=== PATIENT | female | born 1955 | race Caucasian/White ===

== ENCOUNTER 2018-07-27 07:20 | Emergency (ER) ==
--- OUTSIDE RECORDS SUMMARY | 2018-07-27 07:23 | XMS REPORT | Clinical Summary ---
Author Author [facility] Organization [facility] Address Unknown Phone Unavailable Care Team Providers Care Airfield Manager Name Role Phone Mario Ramirez MD PCP Allergies Comments Active Allergy Reactions Severity Noted Date Doesn't take due to GI ulcer. Gets stomach pains Ibuprofen Other (See 12/19/2017 Comments) Nitrofurantoin Hives 07/10/2018 Monohyd/M-Cryst Medications End Date Status Medication Sig Dispensed Refills Start Date Active allopurinol (ZYLOPRIM) allopurinol 0 300 MG tablet 300 mg tablet TAKE ONE (1) TABLET(S) BY MOUTH ONCE A DAY. Active amLODIPine (NORVASC) 5 mg amlodipine 5 0 tablet mg tablet Active thyroid, pork, (ARMOUR Rush 0 THYROID) 60 mg tablet Thyroid 60 mg tablet Active clonIDINE (CATAPRES) 0.1 clonidine HCl 0 MG tablet 0.1 mg tablet 01/28/2019 Active traMADol (ULTRAM) 50 mg Take 1 tablet 60 tablet 0 tablet (50 mg total) 8 by mouth every 4 (four) hours as needed for moderate pain. Active CHONDROITIN SULFATE A Take by 0 ORAL mouth. Active gluc norman/chondro norman A/vit Take by 0 C/Mn (GLUCOSAMINE 1500 mouth. COMPLEX ORAL) Active Lactobac no.41/Bifidobact Take by 0 no.7 (PROBIOTIC-10 ORAL) mouth. Active MELATONIN ORAL Take by 0 mouth. Active MAGNESIUM ORAL Take by 0 mouth. Active cholecalciferol, vitamin Take by 0 D3, (VITAMIN D3 ORAL) mouth. Active multivitamin with Take 1 tablet 0 minerals tablet by mouth daily. Active lwhxlezq-iyuwzutar-TH 3 drops as 0 (CORTISPORIN) needed. For 3.5-10,000-1 ear pain prn mg/mL-unit/mL-% otic solution Active METHOCARBAMOL ORAL Take by 0 mouth. Active acetaminophen (TYLENOL Take by 0 ORAL) mouth. Active loratadine (CLARITIN) 10 Take 10 mg by 0 mg tablet mouth daily. 08/15/2018 Active calcium carbonate (TUMS) Chew 2 120 tablet 0 200 mg calcium (500 mg) tablets 9 chewable tablet (1,000 mg total) 2 (two) times a day for 30 days. 08/15/2018 Active cholecalciferol, vitamin Take 2 60 tablet 0 D3, (cholecalciferol) tablets 9 1,000 unit tablet (2,000 Units total) by mouth daily for 30 days. 07/10/2018 Discontinued meclizine (ANTIVERT) 25 meclizine 25 0 mg tablet mg tablet 02/27/2018 methocarbamol (ROBAXIN) Take 1 tablet 120 tablet 0 500 MG tablet (500 mg 8 total) by mouth 4 (four) times a day for 30 days. 07/20/2018 traMADol (ULTRAM) 50 mg Take 1 tablet 12 tablet 0 tablet (50 mg total) 9 by mouth every 6 (six) hours as needed for moderate pain for up to 3 days. Active Problems Problem Noted Date Hyperparathyroidism 07/15/2018 Primary hyperparathyroidism 07/15/2018 Primary osteoarthritis of right knee 12/19/2017 Encounters Care Team Description Date Type Specialty Logan Becerra MD Visit for wound check (Primary Dx) 07/23/2018 Office Visit General Surgery Audie Tobin MD 07/17/2018 Orders Only General Surgery Lisa Montague NP 07/15/2018 Anesthesia General Surgery Event Logan Becerra MD PARATHYROIDECTOMY 07/15/2018 Surgery General Surgery Logan Becerra MD Status post parathyroidectomy (HCC) (Primary Dx); Primary hyperparathyroidism (HCC) 07/15/2018 Hospital Cardiovascular - Encounter 07/16/2018 Logan Becerra MD Preop examination (Primary Dx) 07/10/2018 Pre-Admit Pre-Admission Testing Testing Appointment Logan Becerra MD Primary hyperparathyroidism (HCC) (Primary Dx) 05/14/2018 Office Visit General Surgery Juan José Ann MD Primary osteoarthritis of right knee (Primary Dx); Rheumatoid arthritis involving knee, unspecified laterality, unspecified rheumatoid factor presence (HCC) 02/18/2018 Clinical Sports Medicine Support Juan José Ann MD Primary osteoarthritis of right knee (Primary Dx) 02/11/2018 Clinical Sports Medicine Support Juan José Ann MD Primary osteoarthritis of right knee (Primary Dx) 02/04/2018 Clinical Sports Medicine Support Juan José Ann MD Contusion of right knee, initial encounter (Primary Dx); Primary osteoarthritis of right knee; Strain of lumbar region, initial encounter; Back pain without sciatica 01/28/2018 Clinical Sports Medicine Support Juan José Ann MD Primary osteoarthritis of right knee (Primary Dx) 01/21/2018 Clinical Sports Medicine Support Juan José Ann MD 01/09/2018 Telephone Juan José Ann MD Primary osteoarthritis of right knee (Primary Dx) 12/19/2017 Office Visit Sports Medicine after 07/26/2017 Family History Medical History Relation Name Comments Mental illness Father Heart disease Mother Hypertension Mother Relation Name Status Comments Father Mother Social History Date Tobacco Use Types Packs/Day Years Used Never Smoker Smokeless Tobacco: Never Used Alcohol Use Drinks/Week oz/Week Comments No Sex Assigned at Date Recorded Not on file Industry Job Start Date Occupation Not on file Not on file Not on file Travel End Travel History Travel Start No recent travel history available. Last Filed Vital Signs Time Taken Vital Sign Reading 07/23/2018 2:04 PM CDT Blood Pressure 129/86 07/23/2018 2:04 PM CDT Pulse 102 07/23/2018 2:04 PM CDT Temperature 36.4 C (97.5 F) 07/16/2018 8:28 AM CDT Respiratory Rate 16 07/23/2018 2:04 PM CDT Oxygen Saturation 97% - Inhaled Oxygen - Concentration 07/23/2018 2:04 PM CDT Weight 85.7 kg (189 lb) 07/23/2018 2:04 PM CDT Height 160 cm (5' 3") 07/23/2018 2:04 PM CDT Body Mass Index 33.48 Plan of Treatment Health Maintenance Due Date Last Done Comments CERVICAL CANCER SCREENING 01/19/1977 BREAST CANCER SCREENING 01/19/2006 COLON CANCER SCREENING 01/19/2006 SHINGLES VACCINES (#1) 01/19/2006 INFLUENZA VACCINE 12/05/2017 02/06/2017, 02/04/2014 Implants Device Identifier Shelf Expiration Date Model / Serial / Lot Implanted Type Area Manufactur er [id number] / / Clip Ligtng Weck Hemoclip Plus W/ Medical N/A: N/A WECK Tape Ti Sm - [id number] Clips for CLOSURE Implanted: 07/15/2018 (Quantity not Internal SYSTEMS on file) Use [id number] / / Clip Ligtng Weck Hemoclip Plus W/ Medical N/A: N/A WECK Tape Ti Sm - [id number] Clips for CLOSURE Implanted: 07/15/2018 (Quantity not Internal SYSTEMS on file) Use [id number] / / Clip Ligtng Weck Hemoclip Plus W/ Medical N/A: N/A TELEFLEX Tape Ti Med - [id number] Clips for MEDICAL Implanted: 07/15/2018 (Quantity not Internal on file) Use [id number] / / Clip Ligtng Weck Hemoclip Plus W/ Medical N/A: N/A TELEFLEX Tape Ti Med - [id number] Clips for MEDICAL Implanted: 07/15/2018 (Quantity not Internal on file) Use Procedures Comments Procedure Name Priority Date/Time Associated Diagnosis CALCIUM LEVEL Routine 07/15/2018 2:31 PM CDT PARATHYROID HORMONE Routine 07/15/2018 10:43 AM CDT PTH INTRAOPERATIVE STAT 07/15/2018 9:43 AM CDT SURGICAL PATHOLOGY Routine 07/15/2018 REQUEST 9:38 AM CDT PTH INTRAOPERATIVE STAT 07/15/2018 9:38 AM CDT PTH INTRAOPERATIVE STAT 07/15/2018 9:33 AM CDT PTH INTRAOPERATIVE STAT 07/15/2018 9:27 AM CDT ARTERIAL LINE Routine 07/15/2018 8:46 AM CDT Procedure Note - Adina Nichols CRNA - 07/15/2018 8:46 AM CDT Arterial line Performed by: Adina Nichols CRNA Authorized by: Nico Green MD Patient Location: OR Start Time: 07/15/2018 8:12 AM End Time: 07/15/2018 8:16 AM Staff: Anesthesio logist: Nico Green MD Performed by: Anesthesio logist Pre-proced ure: patient identified , IV checked, site and side verified, risks and benefits discussed, procedure verified, surgical consent complete, patient position confirmed, monitors and equipment checked and pre-op evaluation complete MSBT: antiseptic used, all elements of maximal sterile barrier technique followed, hand hygiene performed, cap/gown used by other personnel and solutions labeled Indication s: Indication s: hemodynami c monitoring Anesthesia : Anesthesia : General Procedure Details: Arterial Line placement: Placed post induction Line placement site: Radial Line placement side: Right Arterial line gauge: 20 G Number of attempts: 1 Ultrasound guidance used: No Post-proce dure: Post-proce dure: Sterile dressing applied Post procedure circulatio n, sensation, movement: Normal and unchanged Patient tolerance: Patient tolerated the procedure well with no immediate complicati ons ME AN ELECTIVE Routine 07/15/2018 ENDOTRACHEAL AIRWAY 8:44 AM CDT Procedure Note - Adina Nichols CRNA - 07/15/2018 8:44 AM CDT Airway Date/Time: 07/15/2018 8:13 AM Performed by: Adina Nichols CRNA Authorized by: Nico Green MD Location: OR Urgency: Elective Difficult Airway: No Anesthesio logist: Nico Green MD Resident/C RNA/AA: Adina Nichols CRNA Performed by: resident/C RNA/AA Preoxygena son with 100% O2: Yes C-spine Precaution s Maintained Throughout : Yes Mask Ventilatio n: Easy mask Final Airway Type: Endotrache al airway Final Endotrache al Airway: ETT Cuffed: Yes Technique Used: Direct laryngosco py Insertion Site: Oral Blade Type: Kohler Laryngosco pe Blade/Vide olaryngosc ope Blade Size: 2 ETT Size (mm): 7.0 Cuff at minimum occlusion pressure: Yes Measured from: Lips ETT to Lips (cm): 22 Placement Verified by: CO2 detection, direct visualizat ion and equal breath sounds Laryngosco pic view: Grade IIa - partial view of glottis Rapid Sequence Induction (RSI): No Modified RSI: No Number of Attempts at Approach: 1 Eyes taped at [facility] prior to airway manipulati on. Cords clear, ETT passed with ease. Lips and teeth intact per preop EXPLORATION, NECK, WITH 07/15/2018 Primary PARATHYROIDECTOMY 7:55 AM CDT hyperparathyroidism (HCC) Case Notes REQ 0800 START, INTRAOPERA TIVE ULTRASOUND , POSSIBLE EXTENDED RECOVERY NEEDED Special Needs REQ 0800 START, INTRAOPERA TIVE ULTRASOUND , POSSIBLE EXTENDED RECOVERY NEEDED PARATHYROID HORMONE STAT 07/15/2018 7:08 AM CDT ECG PRE/POST OP Routine 07/10/2018 Preop examination 2:48 PM PRESCHOOL PROGRAM DIRECTOR ESTIMATED GFR Routine 07/10/2018 2:36 PM PRESCHOOL PROGRAM DIRECTOR TYPE AND SCREEN Routine 07/10/2018 Preop examination 2:36 PM PRESCHOOL PROGRAM DIRECTOR CBC HEMOGRAM Routine 07/10/2018 Preop examination 2:36 PM PRESCHOOL PROGRAM DIRECTOR COMPREHENSIVE METABOLIC Routine 07/10/2018 Preop examination PANEL 2:36 PM PRESCHOOL PROGRAM DIRECTOR ME ARTHROCENTESIS Routine 02/18/2018 Primary osteoarthritis of ASPIR&/INJ MAJOR JT/BURSA 4:00 PM CDT right knee W/O US Rheumatoid arthritis involving knee, unspecified laterality, unspecified rheumatoid factor presence (HCC) ME ARTHROCENTESIS Routine 02/11/2018 Primary osteoarthritis of ASPIR&/INJ MAJOR JT/BURSA 3:45 PM CDT right knee W/O US ME ARTHROCENTESIS Routine 02/04/2018 Primary osteoarthritis of ASPIR&/INJ MAJOR JT/BURSA 4:15 PM CDT right knee W/O US XR LUMBAR SPINE 2 OR 3 VW Routine 01/28/2018 Sprain of right knee, 4:26 PM CDT unspecified ligament, initial encounter XR KNEE 4+ VW RIGHT Routine 01/28/2018 Sprain of right knee, 4:26 PM CDT unspecified ligament, initial encounter ME ARTHROCENTESIS Routine 01/28/2018 Primary osteoarthritis of ASPIR&/INJ MAJOR JT/BURSA 3:45 PM CDT right knee W/O US ME ARTHROCENTESIS Routine 01/21/2018 Primary osteoarthritis of ASPIR&/INJ MAJOR JT/BURSA 4:15 PM CDT right knee W/US XR KNEE 4+ VW RIGHT Routine 12/19/2017 Sprain of right knee, 3:19 PM CDT unspecified ligament, initial encounter after 07/26/2017 Results * Calcium level (07/15/2018 2:31 PM CDT) Calcium 9.0 8.8 - 10.2 mg/dL [facility] Specimen Plasma specimen Performing Organization Address City/[facility] Phone Number [facility] [place] [address] PATHOLOGY AND GENOMIC MEDICINE [address] * Parathyroid hormone (07/15/2018 10:43 AM CDT) Only the most recent of 2 results within the time period is included. PTH 21 15 - 65 pg/mL [facility] Specimen Blood Performing Organization Address City/[facility] [place] [address] PATHOLOGY AND GENOMIC MEDICINE [address] * PTH intraoperative (07/15/2018 9:43 AM CDT) Only the most recent of 4 results within the time period is included. Intraoperative PTH 31 15 - 65 pg/mL [facility] Performing Organization Address City/[facility]ode Phone Number [facility] [place] [address] PATHOLOGY AND GENOMIC MEDICINE [address] * Surgical pathology request (07/15/2018 9:38 AM CDT) [facility] DEPARTMENT OF PATHOLOGY AND GENOMIC MEDICINE Surgical pathology report See link below for PDF Lab [facility] DEPARTMENT OF Report PATHOLOGY AND GENOMIC MEDICINE Result status This is Final Report for [facility] DEPARTMENT OF [id number] PATHOLOGY AND GENOMIC MEDICINE Performing Organization Address City/[facility] [place] [address] PATHOLOGY AND GENOMIC MEDICINE * ECG Pre/Post Op (07/10/2018 2:48 PM PRESCHOOL PROGRAM DIRECTOR) Ventricular rate 62 [facility]USE Atrial rate 62 [facility] MUSE ME interval 158 [facility] QRSD interval 76 [facility] QT interval 424 [facility] QTC interval 430 [facility] MUSE P axis 1 62 [facility] QRS axis 1 50 [facility] T wave axis 60 [facility] MUSE EKG impression Normal sinus rhythm-Possible [facility] MUSE Left atrial enlargement-Borderline ECG-No previous ECGs available- Narrative Performed At Performing Organization Address City/[facility] Centercode Phone Number [facility] [address] [place] [phone] * Estimated GFR (07/10/2018 2:36 PM PRESCHOOL PROGRAM DIRECTOR) Estimated GFR >=90 mL/min/1.73 m2 [facility] Comment: HOSPITAL CatergoryUnitsInt rpretation G1 >=90 Normal or high G2 60-89Mildly decreased [id number] Mildly to moderately decreased [id number] Moderately to severely decreased G4 15-29Severely decreased G5 <15Kidney failure The eGFR was calculated using the Chronic Kidney Disease Epidemiology Collaboration (CKD-EPI) equation. Interpretation is based on recommendations of the National Kidney Foundation-Kidney Disease Outcomes Quality Initiative (NKF-KDOQI) published in 2014. Specimen Plasma specimen Performing Organization Address City/[facility]/Zipcode Phone Number [facility] DEPARTMENT OF [address] [place] [id number] PATHOLOGY AND GENOMIC MEDICINE [address] * CBC hemogram (07/10/2018 2:36 PM PRESCHOOL PROGRAM DIRECTOR) WBC 10.64 4.50 - 11.00 k/uL [facility] RBC 4.83 4.20 - 5.50 m/uL [facility] HGB 14.4 12.0 - 16.0 g/dL [facility] HCT 43.9 37.0 - 47.0 % [facility] MCV 90.9 82.0 - 100.[address] [facility] MCH 29.8 27.0 - 34.[address] [facility] MCHC 32.8 31.0 - 37.0 g/dL [facility] RDW - SD 44.8 37.0 - 55.[address] [facility] MPV 10.6 8.8 - 13.[address] [facility] Platelet count 362 150 - 400 k/uL [facility] Nucleated RBC 0.00 /[address] [facility] Specimen Blood Performing Organization Address City/State/Zipcode Phone Number [facility] [place] [address] PATHOLOGY AND GENOMIC MEDICINE [address] * Type and screen (07/10/2018 2:36 PM PRESCHOOL PROGRAM DIRECTOR) ABO grouping O [facility] Rh type POS [facility] Antibody screen (gel) NEG [facility] Specimen Blood Performing Organization Address City/[facility]ercode Phone Number [facility] [place] [address] PATHOLOGY AND GENOMIC MEDICINE [address] * Comprehensive metabolic panel (07/10/2018 2:36 PM PRESCHOOL PROGRAM DIRECTOR) Sodium 143 135 - 148 mEq/L [facility] Potassium 3.6 3.5 - 5.0 mEq/L [facility] Chloride 105 98 - 112 mEq/L [facility] CO2 22 (L) 24 - 31 mEq/L [facility] Anion gap 16@ANIO (H) 7 - 15 mEq/L [facility] BUN 18 8 - 23 mg/dL [facility] Creatinine 0.70 0.50 - 0.90 mg/dL [facility] Glucose 78 65 - 99 mg/dL [facility] Calcium 10.5 (H) 8.8 - 10.2 mg/dL [facility] Protein 7.8 6.3 - 8.3 g/dL [facility] Comment: HOSPITAL 4.6-7.0 g/dL 1 week 4.4-7.6 g/dL 7 months-1year 5.1-7.3 g/dL 1-2 years5.6-7 .5 g/dL >3 years6.0-8 .0 g/dL 18-150 6.3-8.3 g/dL Albumin 4.0 3.5 - 5.0 g/dL [facility] A/G ratio 1.1 0.7 - 3.8 [facility] Alkaline phosphatase 139 (H) 35 - 104 U/L [facility] AST 33 10 - 35 U/L [facility] ALT 32 5 - 50 U/L [facility] Total bilirubin 0.4 0.0 - 1.2 mg/dL [facility] Specimen Plasma specimen Performing Organization Address City/State/Zipcode Phone Number [facility] DEPARTMENT OF [address] [place] [address] PATHOLOGY AND GENOMIC MEDICINE [address] * Large Joint Arthrocentesis (02/18/2018 4:00 PM CDT) Narrative Performed At Juan José Ann MD 02/18/20184:49 PM Large Joint Arthrocentesis Site marked: site marked Timeout: Immediately prior to procedure a time out was called to verify the correct patient, procedure, equipment, unit support representative and site/side marked as required Supporting Documentation Indications: pain Procedure Details Preparation: Patient was prepped and draped in the usual sterile fashion Medications provided by specialty pharmacy: yes Location: knee - R knee Right side: Needle size: 20 G Approach: lateral Right knee medications administered: 25 mg sodium hyaluronate (viscosup) 10 mg/mL Patient tolerance: patient tolerated the procedure well with no immediate complications * Large Joint Arthrocentesis (02/11/2018 3:45 PM CDT) Narrative Performed At Juan José Ann MD 02/11/20183:57 PM Large Joint Arthrocentesis Consent given by: patient Site marked: site marked Timeout: Immediately prior to procedure a time out was called to verify the correct patient, procedure, equipment, unit support representative and site/side marked as required Supporting Documentation Indications: pain Procedure Details Preparation: Patient was prepped and draped in the usual sterile fashion Medications provided by specialty pharmacy: yes Location: knee - R knee Right side: Needle size: 20 G Approach: lateral Right knee medications administered: 25 mg sodium hyaluronate (viscosup) 10 mg/mL Patient tolerance: patient tolerated the procedure well with no immediate complications * Large Joint Arthrocentesis (02/04/2018 4:15 PM CDT) Narrative Performed At Juan José Ann MD 02/04/20184:41 PM Large Joint Arthrocentesis Consent given by: patient Site marked: site marked Timeout: Immediately prior to procedure a time out was called to verify the correct patient, procedure, equipment, unit support representative and site/side marked as required Supporting Documentation Indications: pain Procedure Details Preparation: Patient was prepped and draped in the usual sterile fashion Medications provided by specialty pharmacy: yes Location: knee - R knee Right side: Needle size: 20 G Approach: lateral Right knee medications administered: 25 mg sodium hyaluronate (viscosup) 10 mg/mL Patient tolerance: patient tolerated the procedure well with no immediate complications * XR Lumbar Spine 2 Or 3 Vw (01/28/2018 4:26 PM CDT) Narrative Performed At [facility] Increased lumbar lordosis. No obvious fractures or dislocations Performing Organization Address [facility] Phone Number [facility] [address] [place] [address] * XR Knee 4+ Vw Right (01/28/2018 4:26 PM CDT) Only the most recent of 2 results within the time period is included. Narrative Performed At [facility] Mild medial and patellofemoral compartment joint space narrowing. No obvious fractures or dislocations Performing Organization Address City/[facility] Phone Number [facility] [address] [place] [address] * Large Joint Arthrocentesis (01/28/2018 3:45 PM CDT) Narrative Performed At Juan José Ann MD 01/28/20184:38 PM Large Joint Arthrocentesis Consent given by: patient Site marked: site marked Timeout: Immediately prior to procedure a time out was called to verify the correct patient, procedure, equipment, unit support representative and site/side marked as required Supporting Documentation Indications: pain Procedure Details Preparation: Patient was prepped and draped in the usual sterile fashion Medications provided by specialty pharmacy: yes Location: knee - R knee Right side: Needle size: 20 G Approach: lateral Right knee medications administered: 25 mg sodium hyaluronate (viscosup) 10 mg/mL Patient tolerance: patient tolerated the procedure well with no immediate complications * Large Joint Arthrocentesis (01/21/2018 4:15 PM CDT) Narrative Performed At Juan José Ann MD 01/21/20184:43 PM Large Joint Arthrocentesis Consent given by: patient Site marked: site marked Timeout: Immediately prior to procedure a time out was called to verify the correct patient, procedure, equipment, unit support representative and site/side marked as required Supporting Documentation Indications: pain Procedure Details Preparation: Patient was prepped and draped in the usual sterile fashion Ultrasound guided: yes Medications provided by specialty pharmacy: yes Location: knee - R knee Right side: Needle size: 20 G Approach: lateral Right knee medications administered: 25 mg sodium hyaluronate (viscosup) 10 mg/mL Patient tolerance: patient tolerated the procedure well with no immediate complications after 07/26/2017 Insurance Payer Benefit Subscriber ID Type Phone Address Plan / Group AETNA AETNA PPO xxxxxxxxxx PPO OPEN CHOICE AETNA AETNA xxxxxxxxxx HMO HMO,POS,EP O, MC/EC Advance Directives Patient has advance care planning documents on file. For more information, indu coelho contact: Jorge Marie [address] [place] [address]
--- OUTSIDE RECORDS SUMMARY | 2018-07-27 07:23 | XMS REPORT | Encounter Summary ---
Author Organization Unknown Address [address] [place] [address] Phone [phone] Care Team Providers Care Speech Pathology Assistant Name Role Phone Luis Muhammad MD (Urology) 115 [phone] Reason for Visit Medical Complaint Instructions 1. Urinary tract infectious disease urinary tract infection in women: care instructions Bactrim DS 800 mg-160 mg tablet culture, urine phenazopyridine 200 mg tablet urinalysis, dipstick 2. Body mass index 30+ - obesity A healthy lifestyle: care instructions 3. Elevated blood-pressure reading without diagnosis of hypertension elevated blood pressure: care instructions Discussion Note: None recorded. Plan of Care Patient Instructions Drink plenty of water and wear cotton underwear. Please finish all antibiotics, even if you are feeling better. This prevents the infection from coming back. Please seek care or return to [facility] if symptoms do not resolve in 1 week. Reminders Provider Appointments None recorded. Lab Culture, Urine 02/06/2018 [facility] Urinalysis, Dipstick 02/06/2018 [facility] Referral None recorded. Procedures None recorded. Surgeries None recorded. Imaging None recorded. Medications Name Start Date Ala-Hist IR 2 mg tablet TAKE ONE (1) TABLET(S) BY MOUTH THREE TIMES A DAY. allopurinol 300 mg tablet TAKE ONE (1) TABLET(S) BY MOUTH ONCE A DAY. amlodipine 5 mg tablet Carlock Thyroid 60 mg tablet TAKE ONE (1) TABLET(S) BY MOUTH ONCE A DAY. Bactrim DS 800 mg-160 mg tablet Take 1 tablet twice a day by oral route for 7 days. clonidine HCl 0.1 mg tablet TAKE ONE (1) TABLET(S) BY MOUTH TWICE A DAY. Intrarosa 6.5 mg vaginal insert meclizine 25 mg tablet Take 1 tablet 3 times a day by oral route for 5 days. methocarbamol 500 mg tablet Norvasc Osphena 60 mg tablet phenazopyridine 200 mg tablet Take 1 tablet 3 times a day by oral route as needed for 2 days. Supartz FX 10 mg/mL intra-articular syringe tinidazole 500 mg tablet tramadol 50 mg tablet Medications Administered None recorded. Vitals Height Weight BMI Blood Pressure 5 ft 3 in 186 lbs 32.9 kg/m2 120/78 mm[Hg] Lab Results Date Name Specimen Result Interpretation Description Value Range Status Address Urinalysis, Dipstick Color : Red [facility]: [address] [place] [address] Clarity : Cloudy [facility]: [address] [place] [address] Leukocytes : Large [facility]: [address] [place] [address] Nitrites : Positive [facility]: [address] [place] [address] Urobilinogen : Normal [facility]: [address] [place] [address] Protein : Negative [facility]: [address] [place] [address] Ph : 5.0 [facility]: [address] [place] [address] Blood : Non-hemolized Trace [facility]: [address] [place] [address] Specific [place] : 1.015 [facility]: [address] [place] [address] Ketones : Negative [facility]: [address] [place] [address] Bilirubin : Negative [facility]: [address] [place] [address] Glucose Negative [facility]: [address] [place] [address] Allergies Code Code System Name Reaction Severity Status Onset 544846 RxNorm Macrobid Hives Severe Active Problems No Known Problems Procedures None recorded. Vaccine List Vaccine Type influenza, injectable, quadrivalent 02/06/2017 influenza, seasonal, injectable 02/04/2014 Tdap 05/07/2008 Social History Smoking Status Never Smoker Past Encounters 02/06/2018 Urinary Tract Infectious Disease; Body Mass Index 30+ - Obesity; Elevated Blood- pressure Reading without Diagnosis of Hypertension [facility]: [address] [place] [address], Ph. History of Present Illness [id number] Reported By: Patient HPI: Duration: started 1 day. Context: no known exposure to STD, no prior history of STDs, sexually active. Modifying factors ; took pyridium. Associated Symptoms: no fever/chills, no flank pain, no jaundice, no blood in the urine, no vaginal discharge, no blisters on genitals, no rash on genitals, pain during urination, burning sensation during urination, urgency, hesitancy, urinary frequency, feeling of incomplete emptying of bladder; states she needs a bladder suspension per urologist recommendation Review of Systems:ROS as noted in the HPI Review of Systems Basic Reported By: Patient Physical Exam Adult Basic, Adult Female Complete, 14-21 Yr Females Reported By: Patient Constitutional: General Appearance: healthy-appearing, well-nourished, well-developed. Level of Distress: NAD. Ambulation: ambulating normally Psychiatric: Mental Status: active and alert, normal affect, normal mood. Orientation: to time, to place, to person Lungs: Respiratory effort: no dyspnea, no tachypnea, no use of accessory muscles, no intercostal retractions. Auscultation: breath sounds normal, clear to auscultation, no wheezing, no rales/crackles, no rhonchi, no retractions Cardiovascular: Heart Auscultation: RRR, no murmurs, no gallops, no rub, normal femoral pulse. Rate and rhythm: regular Abdomen: Bowel Sounds: normal. Inspection and Palpation: soft, non-distended, no tenderness, no guarding, no rebound tenderness, no masses, no CVA tenderness. Liver: non-tender, no hepatomegaly. Spleen: non-tender, no splenomegaly. Hernia: none palpable. Palpation: (normal) bowel sounds
--- OUTSIDE RECORDS SUMMARY | 2018-07-27 07:23 | XMS REPORT | Encounter Summary ---
Author Organization Unknown Address [address] [place] [address] Phone [phone] Reason for Visit Medical Complaint Instructions 1. Urinary tract infectious disease urinalysis, dipstick phenazopyridine 200 mg tablet culture, urine urinary tract infection in women: care instructions Bactrim DS 800 mg-160 mg tablet probiotics education 2. Elevated blood pressure elevated blood pressure: care instructions 3. Body mass index 30+ - obesity eating healthy foods: care instructions walking for exercise: care instructions body mass index: care instructions Discussion Note Pt is in no apparent acute distress; Verbalizes understanding of and agreement with all instructions with no questions at this time. Plan of Care Patient Instructions Take all medications as directed. Follow up with your PCP as needed. Seek additional medical care with new or worsening symptoms, or if symptoms do not resolve in 3-4 days. Thank you for allowing me to participate in your healthcare! Reminders Provider Appointments None recorded. Lab Urinalysis, Dipstick 08/07/2017 [facility] Culture, Urine 08/07/2017 [facility] Referral None recorded. Procedures None recorded. Surgeries None recorded. Imaging None recorded. Medications Name Start Date Ala-Hist IR 2 mg tablet TAKE ONE (1) TABLET(S) BY MOUTH THREE TIMES A DAY. allopurinol 300 mg tablet TAKE ONE (1) TABLET(S) BY MOUTH ONCE A DAY. amlodipine 5 mg tablet [place]akes Thyroid 60 mg tablet TAKE ONE (1) TABLET(S) BY MOUTH ONCE A DAY. Bactrim DS 800 mg-160 mg tablet Take 1 tablet every 12 hours by oral route for 3 days. clonidine HCl 0.1 mg tablet TAKE ONE (1) TABLET(S) BY MOUTH TWICE A DAY. meclizine 25 mg tablet Take 1 tablet 3 times a day by oral route for 5 days. Norvasc phenazopyridine 200 mg tablet Take 1 tablet 3 times a day by oral route as needed for 2 days. Medications Administered None recorded. Vitals Height Weight BMI Blood Pressure 5 ft 3 in 189 lbs 33.5 kg/m2 146/80 mm[Hg] Lab Results Date Name Specimen Result Interpretation Description Value Range Status Address 08/07/2017 Urinalysis, Dipstick Color : Yellow [facility]: [address] [place] [address] Clarity : Clear [facility]: [address] [place] [address] Leukocytes : Moderate [facility]: [address] [place] [address] Nitrites : Positive [facility]: [address] [place] [address] Urobilinogen : Normal [facility]: [address] [place] [address] Protein : 300 [facility]: [address] [place] [address] Ph : 6.0 [facility]: [address] [place] [address] Blood : Large [facility]: [address] [place] [address] Specific [place] : 1.005 [facility]: [address] [place] [address] Ketones : Negative [facility]: [address] [place] [address] Bilirubin : Negative [facility]: [address] [place] [address] Glucose Negative [facility]: [address] [place] [address] Allergies Code Code System Name Reaction Severity Status Onset 385791 RxNorm Macrobid Hives Severe Active Problems Name Status Onset Date Source Acute Urinary Tract Infection Active Encounter Procedures None recorded. Vaccine List Vaccine Type influenza, injectable, quadrivalent 02/06/2017 influenza, seasonal, injectable 02/04/2014 Tdap 05/07/2008 Social History Smoking Status Never Smoker Past Encounters 08/07/2017 Urinary Tract Infectious Disease; Elevated Blood Pressure; Body Mass Index 30+ - Obesity Reji Mercer, [facility]: [address] [place] [address], Ph. History of Present Illness [id number] Reported By: Patient HPI: Location: urethra. Quality: burning. Severity: mild. Duration: symptoms lasting over 2 weeks. Onset/Timing: gradual. Context: not sexually active, no known exposure to STD, no prior history of STDs, history of urine cultures/antibiotic treatment. Modifying factors nothing makes it worse, nothing gives relief, OTC medication. Associated Symptoms: no fever/chills, no jaundice, no blood in the urine, no pain during urination, no vaginal discharge, no blisters on genitals, no rash on genitals, no muscle aches, no headache, flank pain, urgency, urinary frequency Review of Systems:ROS as noted in the HPI Review of Systems Basic Reported By: Patient Physical Exam Adult Basic, Adult Female Complete Reported By: Patient Constitutional: General Appearance: well-developed. Level of Distress: NAD. Ambulation: ambulating normally Psychiatric: Mental Status: active and alert. Orientation: to time, to place, to person Eyes: Lids and Conjunctivae: non-injected, no discharge, no pallor. Pupils: PERRLA. Corneas: grossly intact. EOM: EOMI. Lens: clear. Sclerae: non-icteric. Vision: acuity grossly intact Mub-Ocak-Swexr-Throat: Ears: no lesions on external ear, no outer ear tenderness, EACs clear, TMs clear. Hearing: no hearing loss. Nose: no lesions on external nose, nares patent, no septal deviation, nasal passages clear, no sinus tenderness, no nasal discharge. Lips, Teeth, and Gums: no mouth or lip ulcers, no bleeding gums, normal dentition. Oropharynx: moist mucous membranes, no erythema, no exudates, tonsils not enlarged Neck: Neck: supple, trachea midline, no masses, FROM. Lymph Nodes: no cervical LAD, no supraclavicular LAD Lungs: Respiratory effort: no dyspnea, no tachypnea, no use of accessory muscles, no intercostal retractions. Auscultation: breath sounds normal Cardiovascular: Heart Auscultation: RRR, no murmurs Neurologic: Gait and Station: normal gait, normal station Skin: Inspection and palpation: no rash, no lesions
--- OUTSIDE RECORDS SUMMARY | 2018-07-27 07:23 | XMS REPORT | Encounter Summary ---
Author Organization Unknown Address [address] [place] [address] Phone [phone] Reason for Visit Right Medical Complaint Instructions 1. Otalgia earache: care instructions Medrol (Kam) 4 mg tablets in a dose pack Augmentin 875 mg-125 mg tablet 2. Dizziness dizziness: care instructions meclizine 25 mg tablet Discussion Note See handout Plan of Care Patient Instructions See handout Reminders Provider Appointments None recorded. Lab None recorded. Referral None recorded. Procedures None recorded. Surgeries None recorded. Imaging None recorded. Medications Name Start Date allopurinol allopurinol 300 mg tablet TAKE ONE (1) TABLET(S) BY MOUTH ONCE A DAY. amlodipine 5 mg tablet amoxicillin 500 mg capsule Jbphh Thyroid Jbphh Thyroid 60 mg tablet TAKE ONE (1) TABLET(S) BY MOUTH ONCE A DAY. Augmentin 875 mg-125 mg tablet Take 1 tablet every 12 hours by oral route for 10 days. azithromycin 250 mg tablet cefdinir 300 mg capsule cephalexin 500 mg capsule TK ONE C PO QID FOR 7 DAYS Cheratussin AC 10 mg-100 mg/5 mL oral liquid ciprofloxacin 500 mg tablet Clindesse 2 % vaginal cream,extended release INSERT ONE (1) APPLICATORFUL(S) IN VAGINA AT BEDTIME. clonidine HCl 0.1 mg tablet TAKE ONE (1) TABLET(S) BY MOUTH TWICE A DAY. do not use doxycycline hyclate 100 mg capsule fluconazole 150 mg tablet Take by oral route 1 tab today, may repeat after 3 days x once Gynazole-1 2 % vaginal cream INSERT ONE (1) APPLICATORFUL(S) IN VAGINA ONCE A DAY. hydrocodone 5 mg-acetaminophen 300 mg tablet TAKE ONE (1) TABLET(S) BY MOUTH EVERY FOUR TO SIX HOURS. hydrocodone 5 mg-acetaminophen 325 mg tablet levofloxacin 500 mg tablet meclizine 25 mg tablet Take 1 tablet 3 times a day by oral route for 5 days. Medrol (Kam) 4 mg tablets in a dose pack Take as directed on package. metronidazole 1 % topical gel APPLY TO THE AFFECTED AREA(S) BY TOPICAL ROUTE ONCE DAILY ; RUB IN GENTLY AND COMPLETELY x 7days Norvasc penicillin V potassium 500 mg tablet Medications Administered None recorded. Vitals Height Weight BMI Blood Pressure 5 ft 3 in 190 lbs 33.7 120/60 Lab Results None recorded. Allergies Code Code System Name Reaction Severity Onset 368014 RxNorm Bactrim Problems Name Status Onset Date Source Bacterial Vaginosis Active Encounter Candidiasis of Vagina Active Encounter Acute Upper Respiratory Infection Active Encounter Acute Urinary Tract Infection Active Encounter Procedures None recorded. Vaccine List Vaccine Type influenza, seasonal, injectable 02/03/2014 Tdap 05/06/2008 Social History Smoking Status Never Smoker Past Encounters 10/01/2016 Otalgia; Dizziness Jouse Dawson, [employer]: [address], [place] [address], Ph. History of Present Illness Ear Complaint Reported By: Patient HPI: Location: right, pain inside ear. Quality: dull. Severity: progressively worse. Duration: constant. Onset/Timing: worse, still present, lasted1 week. Context: no sick contacts, no recent swimming/water in ear, no exposure to second hand smoke, no head trauma, not grinding teeth, no recent air travel. Modifying factors: does not hurt to chew, hurts to lie on, or pull on ear, OTC medication. Associated Symptoms: no discharge from the ears, no nose/sinus problems, no popping noise in the ears, no ringing in the ears, no fever, no chills, no vertigo, no headache, no muscle aches, earache, dizziness Review of Systems:ROS as noted in the HPI Review of Systems Basic Reported By: Patient Physical Exam Adult Basic Reported By: Patient Constitutional: General Appearance: healthy-appearing, well-nourished, well-developed. Level of Distress: NAD. Ambulation: ambulating normally Psychiatric: Mental Status: active and alert. Orientation: to time, to place, to person Eyes: Lids and Conjunctivae: non-injected, no discharge, no pallor. Pupils: PERRLA. Corneas: grossly intact. EOM: EOMI. Lens: clear. Sclerae: non-icteric. Vision: acuity grossly intact Clg-Cgzz-Csrhs-Throat: Ears: no lesions on external ear, no outer ear tenderness, EACs clear, TMs clear, middle ear fluid. Hearing: no hearing loss. Nose: no lesions on external nose, nares patent, no septal deviation, nasal passages clear, no sinus tenderness, post nasal drip. Oropharynx: moist mucous membranes, no erythema, no exudates, tonsils not enlarged Neck: Neck: supple, trachea midline, no masses, FROM. Lymph Nodes: no cervical LAD, no supraclavicular LAD. Thyroid: no enlargement, non-tender, no nodules Lungs: Respiratory effort: no dyspnea, no tachypnea, no use of accessory muscles, no intercostal retractions Cardiovascular: Heart Auscultation: RRR Musculoskeletal:: Motor Strength and Tone: normal motor strength. Joints, Bones, and Muscles: normal movement of all extremities Neurologic: Gait and Station: normal gait. Cranial Nerves: grossly intact. Sensation: grossly intact Skin: Inspection and palpation: no rash, no lesions, no ulcer, no abnormal nevi, no induration, no nodules, good turgor, no jaundice. Nails: normal Back: Thoracolumbar Appearance: normal curvature
--- OUTSIDE RECORDS SUMMARY | 2018-07-27 07:23 | XMS REPORT ---
Author Author [facility] Address Unknown Phone Unavailable Care Team Providers Care Post Partum Nurse Name Role Phone Unavailable Unavailable Payers Payer Name Policy Type Policy Number Effective Date Expiration Date Problems This patient has no known problems. Allergies, Adverse Reactions, Alerts Allergy Name Allergy Type Status Severity Reaction(s) Onset Date Inactive Date Treating Clinician Comments No Known Allergies DA Active U 2014-02-13 00:00:00 Medications This patient has no known medications.
--- OUTSIDE RECORDS SUMMARY | 2018-07-27 07:23 | XMS REPORT | Continuity of Care Document ---
Author Author [facility] Interface Address Unknown Phone Unavailable Problems Problem Status Onset Date Classification Date Reported Comments Source Elevated blood-pressure reading without diagnosis of hypertension 02/06/2018 Diagnosis 02/06/2018 [facility] Body mass index 30+ - obesity 02/06/2018 Diagnosis 02/06/2018 [facility] Urinary tract infectious disease 02/06/2018 Diagnosis 02/06/2018 [facility] Elevated blood pressure 08/08/2017 Diagnosis 08/08/2017 [facility] Otalgia 10/01/2016 Diagnosis 10/01/2016 [facility] Dizziness 10/01/2016 Diagnosis 10/01/2016 [facility] Acute Urinary Tract Infection Problem 08/08/2017 [facility] Bacterial Vaginosis Problem 10/01/2016 [facility] Candidiasis of Vagina Problem 10/01/2016 [facility] Acute Upper Respiratory Infection Problem 10/01/2016 [facility] Medications Medication Details Route Status Patient Instructions Ordering Provider Order Date Source dexbrompheniramine 2 MG Oral Tablet [Ala-Hist IR] Ala-Hist IR 2 mg tablet TAKE ONE (1) TABLET(S) BY MOUTH THREE TIMES A DAY. Active [facility] Allopurinol 300 MG Oral Tablet allopurinol 300 mg tablet TAKE ONE (1) TABLET(S) BY MOUTH ONCE A DAY. Active [facility] Amlodipine 5 MG Oral Tablet amlodipine 5 mg tablet Active [facility] thyroid (MCFP) 60 MG Oral Tablet [[place] Thyroid] [place] Thyroid 60 mg tablet TAKE ONE (1) TABLET(S) BY MOUTH ONCE A DAY. Active [facility] Sulfamethoxazole 800 MG / Trimethoprim 160 MG Oral Tablet [Bactrim] Bactrim DS 800 mg-160 mg tablet Take 1 tablet twice a day by oral route for 7 days. Active [facility] Clonidine Hydrochloride 0.1 MG Oral Tablet clonidine HCl 0.1 mg tablet TAKE ONE (1) TABLET(S) BY MOUTH TWICE A DAY. Active [facility] Meclizine Hydrochloride 25 MG Oral Tablet meclizine 25 mg tablet Take 1 tablet 3 times a day by oral route for 5 days. Active [facility] Norvasc Norvasc Active [facility] Phenazopyridine hydrochloride 200 MG Oral Tablet phenazopyridine 200 mg tablet Take 1 tablet 3 times a day by oral route as needed for 2 days. Active [facility] prasterone 6.5 MG Vaginal Suppository [Intrarosa] Intrarosa 6.5 mg vaginal insert Active [facility] Methocarbamol 500 MG Oral Tablet methocarbamol 500 mg tablet Active [facility] Ospemifene 60 MG Oral Tablet [Osphena] Osphena 60 mg tablet Active [facility] Sodium Hyaluronate 10 MG/ML Prefilled Syringe Supartz FX 10 mg/mL intra-articular syringe Active [facility] Tinidazole 500 MG Oral Tablet tinidazole 500 mg tablet Active [facility] tramadol hydrochloride 50 MG Oral Tablet tramadol 50 mg tablet Active [facility] Zyloprim allopurinol Active [facility] Amoxicillin 500 MG Oral Capsule amoxicillin 500 mg capsule Active [facility] [place] Thyroid [place] Thyroid Active [facility] Amoxicillin 875 MG / Clavulanate 125 MG Oral Tablet [Augmentin] Augmentin 875 mg-125 mg tablet Take 1 tablet every 12 hours by oral route for 10 days. Active [facility] Azithromycin 250 MG Oral Tablet azithromycin 250 mg tablet Active [facility] cefdinir 300 MG Oral Capsule cefdinir 300 mg capsule Active [facility] Cephalexin 500 MG Oral Capsule cephalexin 500 mg capsule TK ONE C PO QID FOR 7 DAYS Active [facility] Codeine Phosphate 2 MG/ML / Guaifenesin 20 MG/ML Oral Solution [Cheratussin] Cheratussin AC 10 mg-100 mg/5 mL oral liquid Active [facility] Ciprofloxacin 500 MG Oral Tablet ciprofloxacin 500 mg tablet Active [facility] Clindamycin 20 MG/ML Vaginal Cream [Clindesse] Clindesse 2 % vaginal cream,extended release INSERT ONE (1) APPLICATORFUL(S) IN VAGINA AT BEDTIME. Active [facility] do not use do not use Active [facility] doxycycline hyclate 100 MG Oral Capsule doxycycline hyclate 100 mg capsule Active [facility] Fluconazole 150 MG Oral Tablet fluconazole 150 mg tablet Take by oral route 1 tab today, may repeat after 3 days x once Active [facility] Butoconazole nitrate 20 MG/ML Vaginal Cream [Gynazole-1] Gynazole-1 2 % vaginal cream INSERT ONE (1) APPLICATORFUL(S) IN VAGINA ONCE A DAY. Active [facility] Acetaminophen 300 MG / Hydrocodone Bitartrate 5 MG Oral Tablet hydrocodone 5 mg-acetaminophen 300 mg tablet TAKE ONE (1) TABLET(S) BY MOUTH EVERY FOUR TO SIX HOURS. Active [facility] Acetaminophen 325 MG / Hydrocodone Bitartrate 5 MG Oral Tablet hydrocodone 5 mg-acetaminophen 325 mg tablet Active [facility] Levofloxacin 500 MG Oral Tablet levofloxacin 500 mg tablet Active [facility] Medrol (Kam) 4 mg tablets in a dose pack Medrol (Kam) 4 mg tablets in a dose pack Take as directed on package. Active [facility] Metronidazole 0.01 MG/MG Topical Gel metronidazole 1 % topical gel APPLY TO THE AFFECTED AREA(S) BY TOPICAL ROUTE ONCE DAILY ; RUB IN GENTLY AND COMPLETELY x 7days Active [facility] Penicillin V Potassium 500 MG Oral Tablet penicillin V potassium 500 mg tablet Active [facility] Allergies, Adverse Reactions, Alerts Substance Category Reaction Severity Reaction type Status Date Reported Comments Source Bactrim Allergy to substance 03/09/2012 [facility] Macrobid Hives Allergy to substance 08/08/2017 [facility] Immunizations Immunization Date Given Site Status Last Updated Comments Source influenza, injectable, quadrivalent 02/06/2017 completed [facility] influenza, seasonal, injectable 02/04/2014 completed [facility] Tdap 05/07/2008 completed [facility] Results Order Name Results Value Reference Range Date Interpretation Comments Source Urinalysis macro (dipstick) panel - Urine COLOR : Red 02/06/2018 [facility] Urinalysis macro (dipstick) panel - Urine CLARITY : Cloudy 02/06/2018 [facility] Urinalysis macro (dipstick) panel - Urine LEUKOCYTES : Large 02/06/2018 [facility] Urinalysis macro (dipstick) panel - Urine NITRITES : Positive 02/06/2018 [facility] Urinalysis macro (dipstick) panel - Urine UROBILINOGEN : Normal 02/06/2018 [facility] Urinalysis macro (dipstick) panel - Urine PROTEIN : Negative 02/06/2018 [facility] Urinalysis macro (dipstick) panel - Urine pH : 5.0 02/06/2018 [facility] Urinalysis macro (dipstick) panel - Urine BLOOD : Non-hemolized Trace 02/06/2018 [facility] Urinalysis macro (dipstick) panel - Urine SPECIFIC GRAVITY : 1.015 02/06/2018 [facility] Urinalysis macro (dipstick) panel - Urine KETONES : Negative 02/06/2018 [facility] Urinalysis macro (dipstick) panel - Urine BILIRUBIN : Negative 02/06/2018 [facility] Urinalysis macro (dipstick) panel - Urine GLUCOSE Negative 02/06/2018 [facility] Urinalysis macro (dipstick) panel - Urine COLOR : Yellow 08/07/2017 [facility] Urinalysis macro (dipstick) panel - Urine CLARITY : Clear 08/07/2017 [facility] Urinalysis macro (dipstick) panel - Urine LEUKOCYTES : Moderate 08/07/2017 [facility] Urinalysis macro (dipstick) panel - Urine NITRITES : Positive 08/07/2017 [facility] Urinalysis macro (dipstick) panel - Urine UROBILINOGEN : Normal 08/07/2017 [facility] Urinalysis macro (dipstick) panel - Urine PROTEIN : 300 08/07/2017 [facility] Urinalysis macro (dipstick) panel - Urine pH : 6.0 08/07/2017 [facility] Urinalysis macro (dipstick) panel - Urine BLOOD : Large 08/07/2017 [facility] Urinalysis macro (dipstick) panel - Urine SPECIFIC GRAVITY : 1.005 08/07/2017 [facility] Urinalysis macro (dipstick) panel - Urine KETONES : Negative 08/07/2017 [facility] Urinalysis macro (dipstick) panel - Urine BILIRUBIN : Negative 08/07/2017 [facility] Urinalysis macro (dipstick) panel - Urine GLUCOSE Negative 08/07/2017 [facility] Vital Signs Vital Sign Value Date Comments Source Diastolic (mm Hg) 78 02/06/2018 [facility] Height 63 02/06/2018 [facility] Systolic (mm Hg) 120 02/06/2018 [facility] Weight 186 02/06/2018 [facility] Diastolic (mm Hg) 80 08/07/2017 [facility] Height 63 08/07/2017 [facility] Systolic (mm Hg) 146 08/07/2017 [facility] Weight 189 08/07/2017 [facility] Diastolic (mm Hg) 60 10/01/2016 [facility] Height 63 10/01/2016 [facility] Systolic (mm Hg) 120 10/01/2016 [facility] Weight 190 10/01/2016 [facility] Encounters Location Location Details Encounter Type Encounter Number Reason For Visit Attending Provider ADM Date DC Date Status Source [place] - [facility] - [id number] Dawson, [employer]: [address], [place] [address], Ph. [id number] Josue Dawson 10/01/2016 [facility] [place] - [facility] [id number] LAURI SilvaP-C: [address] [place] [address], Ph. [id number] Reji Mercer 08/07/2017 [facility] [place] [facility] [id number] LAURI HeP-C: [address] [place] [address], Ph. [id number] Franchesca Antony 02/06/2018 [facility] Procedures Procedure Code Date Perfomer Comments Source
--- NOTE | 2018-07-27 07:32 | NUR ---
PATIENT BANGING ON WINDOW SCREAMING AND CURSING AT STAFF "YOU NEED TO BRING MY SISTER BACK NOW". PATIENT AND SISTER INFORMED THAT WE WILL TAKE THEM BACK SHORTLY. PATIENT CONTINUED SCREAMING AND CURSING AT STAFF AND STATES SHE DOES NOT NEED TO WAIT AND NEEDS TO COME BACK NOW. SHE RATHER LEAVE IF SHE HAVE TO WAIT A MINUTE LONGER.
== END 2018-07-27 07:44 | disposition short-term general hospital (02) ==
LOC: ER 07:20
DX: R69 Illness, unspecified (principal)